=== PATIENT | female | born 1985 | race Two or more races ===

== ENCOUNTER 2023-11-08 08:39 | Emergency (ER) | payer SELFPAY ==
[~2023-11-08] VITALS: Ht 165.1 cm; Wt 87.6 kg
[2023-11-08 09:24] LABS: Urine Bacteria FEW /hpf (None Seen); Urine Blood TRACE /uL (Negative); Urine Clarity Clear (Clear); Urine Color Colorless (Yellow); Urine Protein, UAD Negative (Negative); Urine Specific Gravity 1.007 (1.001-1.035); Urine Urobilinogen Normal (Negative); Urine WBC <1 /hpf (0 - 5); Urine pH 6.5 (5.0-8.0)
[2023-11-08 13:28] VITALS: BP 124/71; TEMP 97.6; O2SAT 98
[2023-11-08 13:30] VITALS: PULSE 84; RESP 20
== END 2023-11-08 11:55 | disposition home or self-care (01) ==
LOC: ER 08:39
DX: O03.9 Complete or unspecified spontaneous abortion without complication (principal); R10.2 Pelvic and perineal pain; E78.5 Hyperlipidemia, unspecified; Z98.890 Other specified postprocedural states
CPT/HCPCS: 36415; 76801; 76817; 81001; 84702